=== PATIENT | male | born 1955 | race Caucasian/White ===

== ENCOUNTER 2020-05-10 14:35 | Inpatient (IN) | payer BC, MEDICARE ==
[2020-05-10] VITALS (13 sets, daily range): BP systolic 76–148; BP diastolic 46–79
[~2020-05-10] VITALS: Ht 180.3 cm; Wt 97.5 kg
[2020-05-10 15:09] LABS: HEMOGLOBIN 14.6 gm/dL (14.0-18.0)
[2020-05-10 15:10] LABS: HEMATOCRIT 44.4 % (42.0-52.0); MCH 32.5 pg (26.0-34.0); MCV 98.7 fL (80.0-100.0); MPV 8.3 fl. (7.2-11.1); NUCLEATED RBCS 1 /100WBC; PLATELET COUNT* 190 thou/uL (150-400); RDW-CV 13.1 % (10.5-14.5); WBC 10.7 thou/uL (4.0-11.0)
[2020-05-10 15:23] LABS: APTT 35.6 Seconds (25.0-31.3); INR 1.2; PROTIME 12.2 Seconds (9.20-11.50)
[2020-05-10 15:28] LABS: CALCIUM 8.3 mg/dL (8.5-10.1); CREATININE 1.1 mg/dL (0.6-1.3); POTASSIUM 3.8 mmol/L (3.5-5.1)
[2020-05-10 15:42] LABS: CK-MB MASS 2.8 ng/mL (<0.5-3.6); MAGNESIUM 2.5 mg/dL (1.8-2.4); TOTAL BILIRUBIN 0.4 mg/dL (<0.1-1.0); TOTAL PROTEIN 6.1 g/dL (6.4-8.2)
[2020-05-10 15:46] LABS: ABSOLUTE EOSINOPHILS 0.3 thou/uL (0.0-0.7); ABSOLUTE NEUTROPHILS 1.4 thou/uL (1.6-8.1)
[2020-05-10 15:47] LABS: PLATELET ESTIMATE ADEQUATE
[2020-05-10 15:54] LABS: BE -15.7 mmol/L (-2 to +3); PCO2 37.8 mmHg (35.0-45.0)
[2020-05-10 15:59] LABS: PO2 456.4 mmHg (75.0-100.0); pH 7.139 (7.340-7.450)
--- NOTE | 2020-05-10 16:35 | EKG ---
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[place] : 1955 Requested By: Dewayne Villafana Order Number: [id number] MD: Narciso Smith Measurements Intervals [place] Rate: 104 P: [place]: QRS: 146 QRSD: 178 T: 22 QT: 435 QTc: 573 Interpretive Statements Atrial fibrillation Right bundle branch block Anterolateral infarct, acute (LAD) Compared to ECG 05/10/2020 14:45:11 Ventricular premature complex(es) no longer present Myocardial infarct finding still present Electronically Signed On 05-10-2020 16:35:31 STEEL SPAR OPERATOR by Narciso Smith [email or web address] <ELECTRONICALLY SIGNED> By: Narciso Smith MD, FAC 05/10/20 1635 1446 1446 Narciso Smith MD, [facility] /EPI
--- NOTE | 2020-05-10 16:35 | EKG ---
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: [place] : 1955 Requested By: Dewayne Villafana Order Number: [id number] MD: Narciso Smith Measurements Intervals [place] Rate: 107 P: [place]: QRS: 157 QRSD: 178 T: 24 QT: 436 QTc: 582 Interpretive Statements Atrial fibrillation Ventricular bigeminy Right bundle branch block Anterolateral infarct, acute (LAD) Baseline wander in lead(s) II,III,aVF,V5 No previous ECG available for comparison Electronically Signed On 05-10-2020 16:35:29 NURSERY TECHNICIAN by Narciso Smith [email or web address] <ELECTRONICALLY SIGNED> By: Narciso Smith MD, FAC 05/10/20 1635 1445 1445 Narciso Smith MD, [facility] /EPI
[2020-05-10 18:19] LABS: BE -10.7 mmol/L (-2 to +3); PCO2 47.8 mmHg (35.0-45.0); PO2 68.9 mmHg (75.0-100.0)
[2020-05-10 18:27] LABS: CALCIUM 7.7 mg/dL (8.5-10.1); CREATININE 1.4 mg/dL (0.6-1.3); PHOSPHORUS* 7.8 mg/dL (2.5-4.9); POTASSIUM 3.2 mmol/L (3.5-5.1)
[2020-05-10 18:31] LABS: pH 7.183 (7.340-7.450)
[2020-05-10 21:05] LABS: BE -8.1 mmol/L (-2 to +3)
[2020-05-10 21:07] LABS: PCO2 51.5 mmHg (35.0-45.0)
[2020-05-10 23:03] LABS: HEMATOCRIT 43.8 % (42.0-52.0); HEMOGLOBIN 14.5 gm/dL (14.0-18.0); MCH 31.6 pg (26.0-34.0); MCHC 33.2 g/dL (28.0-37.0); MCV 95.2 fL (80.0-100.0); MPV 7.8 fl. (7.2-11.1); NUCLEATED RBCS 0 /100WBC; RDW-CV 12.9 % (10.5-14.5)
[2020-05-10 23:05] LABS: PLATELET COUNT* 290 thou/uL (150-400); WBC 27.9 thou/uL (4.0-11.0)
[2020-05-10 23:07] LABS: CALCIUM 7.7 mg/dL (8.5-10.1); CREATININE 1.6 mg/dL (0.6-1.3)
[2020-05-10 23:09] LABS: POTASSIUM 2.9 mmol/L (3.5-5.1)
[2020-05-10 23:11] LABS: INR 1.8; PROTIME 18.6 Seconds (9.20-11.50)
[2020-05-10 23:22] LABS: CALCIUM 8.1 mg/dL (8.5-10.1); CK-MB MASS 166.1 ng/mL (<0.5-3.6); MAGNESIUM 1.8 mg/dL (1.8-2.4); PHOSPHORUS* 5.2 mg/dL (2.5-4.9)
[2020-05-10 23:23] LABS: APTT 54.4 Seconds (25.0-31.3)
[2020-05-11] VITALS (95 sets, daily range): BP systolic 61–155; BP diastolic 36–75
[2020-05-11 00:23] LABS: ABSOLUTE LYMPHOCYTES 0.6 thou/uL (0.8-5.3); ABSOLUTE MONOCYTES 1.7 thou/uL (0.0-1.2); ABSOLUTE NEUTROPHILS 25.7 thou/uL (1.6-8.1); PLATELET ESTIMATE ADEQUATE
[2020-05-11 05:22] LABS: HEMOGLOBIN 14.6 gm/dL (14.0-18.0); MCH 31.5 pg (26.0-34.0); MCHC 33.2 g/dL (28.0-37.0); MCV 94.9 fL (80.0-100.0); MPV 7.6 fl. (7.2-11.1); RBC 4.64 mil/uL (4.50-6.00); RDW-CV 13.1 % (10.5-14.5)
[2020-05-11 05:46] LABS: CHOLESTEROL 178 mg/dL (<200); HDL CHOLESTEROL 32 mg/dL (>40); LDL CHOLESTEROL 113 mg/dL (<100); TC:HDL 5.6 Ratio (Not establshd); TRIGLYCERIDE 169 mg/dL (<150); VLDL 34 mg/dL (<40)
[2020-05-11 05:47] LABS: CALCIUM 6.5 mg/dL (8.5-10.1); CK-MB MASS 177.6 ng/mL (<0.5-3.6); CREATININE 1.5 mg/dL (0.6-1.3); MAGNESIUM 1.5 mg/dL (1.8-2.4); PHOSPHORUS* 2.5 mg/dL (2.5-4.9)
[2020-05-11 05:51] LABS: SERUM ASSESSMENT Clear
[2020-05-11 05:53] LABS: POTASSIUM 2.6 mmol/L (3.5-5.1)
[2020-05-11 05:54] LABS: INR 1.3; PROTIME 13.2 Seconds (9.20-11.50)
[2020-05-11 05:55] LABS: TROPONIN-I LEVEL 25.94 ng/mL (<0.06)
[2020-05-11 05:56] LABS: APTT 36.5 Seconds (25.0-31.3)
[2020-05-11 07:34] LABS: BE -10.3 mmol/L (-2 to +3); PCO2 38.2 mmHg (35.0-45.0)
[2020-05-11 07:37] LABS: PO2 159.5 mmHg (75.0-100.0); pH 7.247 (7.340-7.450)
--- NOTE | 2020-05-11 08:39 | CON ---
[address] [address] CONSULTATION Name: ELIAN OROURKE Room: [address] ADM IN M.R.#: [id number] Admission: 05/10/20 Attend Phys: Rigoberto Choi MD Discharge: Date of : 55 Report #: [id number] THIS REPORT FOR: cc: Physician not on staff Physician not on staff ~ Narciso Smith MD [facility] DATE OF SERVICE: 05/10/2020 CARDIOLOGY CONSULT INDICATION: Out of hospital cardiac arrest with ST elevation myocardial infarction. HISTORY OF PRESENT ILLNESS: The patient is a 65-year-old gentleman, not previously known to myself. He was brought to the Emergency Room by [facility] after they were summoned. He apparently was helping his son unload wood on a truck and suddenly collapsed. The patient had resuscitative efforts undertaken within 6 minutes of collapsing. He was brought to the hospital where ACLS protocol was followed and spontaneous perfusion returned. The patient received several rounds of epinephrine in the Emergency Room and was emergently to the cardiac catheterization lab. PAST MEDICAL HISTORY: Not yet documented and not known. ALLERGIES: None known. CURRENT MEDICATIONS: Not known. SOCIAL HISTORY: Not known. FAMILY HISTORY: Not known. PHYSICAL EXAMINATION: VITAL SIGNS: At the time of exam in the emergency room, heart rate was in the 110s with a blood pressure of approximately 90/60 after receiving epinephrine. The patient was unresponsive. HEENT: Head is normocephalic, atraumatic, somewhat cyanotic. NECK: Thick without obvious jugular venous distention. CHEST: Breath sounds equal bilaterally with ventilator support. CARDIOVASCULAR: Irregular, tachycardic rhythm with distant S1 and S2 without obvious gallop, rub or murmur. ABDOMEN: Distended without firmness. EXTREMITIES: Without edema. Peripheral pulses ____ [place] [address] CONSULTATION Name: ELIAN OROURKE Room: [address]#: [id number] Admission: 05/10/20 Attend Phys: Rigoberto Choi MD Discharge: Date of : 55 Report #: [id number] LABORATORY DATA: EKG showed diffuse ST elevation involving the inferior and anterolateral leads. The patient will be taken emergently to the cardiac catheterization lab for urgent angiography and possible intervention. <ELECTRONICALLY SIGNED> By: Narciso Smith MD, FACC 05/11/20 0839 1527 1553Micsabina Smith MD, FAC /nt
--- NOTE | 2020-05-11 09:59 | EKG ---
[place] [address] ELECTROCARDIOGRAM REPORT Name: SHARADELIAN Room: [address] ADM IN M.R.#: [id number] Admission: 05/10/20 Attend Phys: Rigoberto Choi, Discharge: Date of : 55 Date of Service: 05/11/20 0839 Report #: [id number] THIS REPORT FOR: //name// [facility] Test Date: 2020-05-11 Test Time: 08:39:39 Pat Name: ELIAN OROURKE Department: Room: [address] Gender: M Personal Injury Attorney: LUIS FELIPE : 1955 Requested By: Julius Beaulieu Order Number: [id number] Samuel MD: Julius Beaulieu Measurements Intervals [place] Rate: 84 P: 44 TN: 173 QRS: -46 QRSD: 103 T: 69 QT: 451 QTc: 534 Interpretive Statements Sinus rhythm Left anterior fascicular block nonspecific st segment changes Prolonged QT interval Compared to ECG 05/10/2020 14:46:00 ST segment elevation resolved Prolonged QT interval now present Atrial fibrillation no longer present Right bundle-branch block no longer present Electronically Signed On 05-11-2020 9:59:22 TIME CLERK by Julius Beaulieu [email or web address] <ELECTRONICALLY SIGNED> By: Julius Beaulieu MD, [facility] 05/11/2059 8 8 Julius Beaulieu MD, [facility] /EPI
[2020-05-11 12:10] LABS: CALCIUM 7.4 mg/dL (8.5-10.1); CREATININE 1.8 mg/dL (0.6-1.3); MAGNESIUM 2.5 mg/dL (1.8-2.4)
[2020-05-11 12:11] LABS: POTASSIUM 3.7 mmol/L (3.5-5.1)
--- NOTE | 2020-05-11 16:19 | 2DMMODE ---
[place] [address] 2 D/M-MODE ECHOCARDIOGRAM Name: ELIAN OROURKE Room: [address] ADM IN .R.#: [id number] Admission: 05/10/20 Attend Phys: Rigoberto Choi, Discharge: Date of : 55 Date of Service: 05/11/20 1619 Report #: [id number] THIS REPORT FOR: cc: Physician not on staff Physician not on staff Julius Beaulieu MD [facility] ~ APPROVED REPORT Study performed: 05/11/2020 13:54:32 EXAM: Limited 2D Patient Location: In-Patient Room #: [facility][note 3] BSA: 2.24 HR: 86 bpm BP: 116/63 mmHg Rhythm: NSR Other Information Study Quality: Technically Limited Technically limited study due to patient on ventilator, inability to position patient, poor endocardial definition. Indications Acute MO CAD Echo Enhancing Agent Indication: Endocardial border delineation Agent(s) / Amount(s) Used: Optison 3 cc Left Ventricle The left ventricle is normal size. severe hypokinesis of the distal septum and apex Left ventricular systolic function is mildly decreased. Right Ventricle The right ventricle is normal size. Atria The left atrium size is normal. The right atrium size is normal. Aortic Valve [address] [address] 2 D/M-MODE ECHOCARDIOGRAM Name: SHARADELIAN Room: [address] IN M.R.#: [id number] Admission: 05/10/20 Attend Phys: Rigoberto Choi, Discharge: Date of : 55 Date of Service: 05/11/209 Report #: [id number] The Aortic valve is sclerotic. Mitral Valve There is mitral annular calcification. The mitral valve is normal in structure. Tricuspid Valve The tricuspid valve is normal in structure. Pulmonic Valve Pulmonic valve is not well visualized. Great Vessels IVC is not well visualized. Pericardium There is no pericardial effusion. <Conclusion> severe hypokinesis of the distal septum and apex Left ventricular systolic function is mildly decreased. The Aortic valve is sclerotic. <ELECTRONICALLY SIGNED> By: Julius Beaulieu MD, FACC 05/11/201618 18 18 Julius Beaulieu MD, FACC /INF
[2020-05-11 17:15] LABS: BE -10.4 mmol/L (-2 to +3); PCO2 39.4 mmHg (35.0-45.0); PO2 97.1 mmHg (75.0-100.0); pH 7.237 (7.340-7.450)
[2020-05-11 17:30] LABS: HEMATOCRIT 37.1 % (42.0-52.0); MCH 31.8 pg (26.0-34.0); MCHC 33.7 g/dL (28.0-37.0); MCV 94.6 fL (80.0-100.0); MPV 7.6 fl. (7.2-11.1); RBC 3.92 mil/uL (4.50-6.00); RDW-CV 13.2 % (10.5-14.5); WBC 21.1 thou/uL (4.0-11.0)
[2020-05-11 17:31] LABS: HEMOGLOBIN 12.5 gm/dL (14.0-18.0)
[2020-05-11 17:45] LABS: APTT 30.6 Seconds (25.0-31.3)
[2020-05-11 17:46] LABS: CALCIUM 7.5 mg/dL (8.5-10.1); CREATININE 1.6 mg/dL (0.6-1.3); MAGNESIUM 2.2 mg/dL (1.8-2.4); PHOSPHORUS* 3.3 mg/dL (2.5-4.9); POTASSIUM 3.1 mmol/L (3.5-5.1)
[2020-05-12] VITALS (40 sets, daily range): BP systolic 86–126; BP diastolic 46–65
[2020-05-12 03:11] LABS: ABSOLUTE BASOPHILS 0.1 thou/uL (0.0-0.2); ABSOLUTE LYMPHOCYTES 0.7 thou/uL (0.8-5.3); ABSOLUTE MONOCYTES 1.3 thou/uL (0.0-1.2); ABSOLUTE NEUTROPHILS 18.7 thou/uL (1.6-8.1); BASOPHILS 0.3 %; HEMATOCRIT 33.4 % (42.0-52.0); HEMOGLOBIN 11.5 gm/dL (14.0-18.0); LYMPHOCYTES 3.3 %; MCH 32.1 pg (26.0-34.0); MCHC 34.6 g/dL (28.0-37.0); MCV 92.9 fL (80.0-100.0); MONOCYTES 6.3 %; MPV 7.4 fl. (7.2-11.1); NUCLEATED RBCS 0 /100WBC; PLATELET COUNT* 210 thou/uL (150-400); POLYS 90.1 %; RBC 3.59 mil/uL (4.50-6.00); RDW-CV 13.3 % (10.5-14.5); WBC 20.8 thou/uL (4.0-11.0)
[2020-05-12 03:18] LABS: CALCIUM 6.8 mg/dL (8.5-10.1); CREATININE 1.4 mg/dL (0.6-1.3); POTASSIUM 3.1 mmol/L (3.5-5.1)
[2020-05-12 03:22] LABS: ALBUMIN 2.7 g/dL (3.4-5.0); MAGNESIUM 1.8 mg/dL (1.8-2.4); TOTAL BILIRUBIN 0.6 mg/dL (<0.1-1.0); TOTAL PROTEIN 5.3 g/dL (6.4-8.2)
[2020-05-12 09:16] LABS: BE -2.2 mmol/L (-2 to +3); PCO2 37.1 mmHg (35.0-45.0); PO2 101.6 mmHg (75.0-100.0); pH 7.396 (7.340-7.450)
--- NOTE | 2020-05-12 14:29 | CARD ---
[address] [address] CARDIAC CATH REPORT Name: ELIAN OROURKE Room: [address] ADM IN M.R.#: [id number] Admission: 05/10/20 Attend Phys: Rigoberto Choi MD Discharge: Date of : 55 Report #: [id number] THIS REPORT FOR: cc: Physician not on staff Physician not on staff ~ Julius Beaulieu MD [facility] APPROVED REPORT Study performed: 05/10/2020 14:55:50 Patient Details Patient Status: ED Room #: The patient is a 65 year-old male Event Personnel Narciso Smith Traffic Maintenance Officer, Julius Beaulieu Cleaner Industrial, Natasha Page RN RN, Susan Peterson Monitor, Kaz Palafox RTR Scrub Procedures Performed Art Access - R femoral artery* , Left Heart Catheterization, PTCA with Stenting of RCA and LAD Indication Abnormal ECG, Syncope Risk Factors Diabetes Admission/Lab Medications/Medications given during procedure Glycoprotein IllbIlla Inhibitors, Thrombin Inhibitors, Atropine IV 1 mg, Angiomax IV 16 ml, Angiomax Drip IV 36.7 ml per hr, Aggrastat Unknown 10.9 ml, Dopamine IV 5 mcg per kg per min, Bicarb IV 50 ml, Lidocaine Hydrochloride IV 75 mg Procedure Narrative The patient was brought emergently to the Cardiac Catheterization Laboratory and was prepped and draped in a sterile manner. The right femoral was infiltrated with 2% Lidocaine subcutaneous anesthesia. A [place] 6 FR sheath was inserted into the right femoral artery. Coronary angiography was performed using coronary diagnostic catheters. The right coronary system was accessed and visualized with a Diagnostic catheter. The left coronary [place] [address] CARDIAC CATH REPORT Name: SHARADELIAN Room: [address] IN [facility]#: [id number] Admission: 05/10/20 Attend Phys: Rigoberto Choi MD Discharge: Date of : 55 Report #: [id number] visualized with a Diagnostic catheter. The left ventricle was accessed and visualized with a Diagnostic catheter. Left ventricular/Aortic Valve gradient assessed via catheter pullback. The patient tolerated the procedure well and there were no complications associated with the procedure. There was no hematoma. Sheath sutured into Right Femoral artery. Triple lumen venous catheter was placed in the right femoral vein at the end of the procedure. The patient suffered an acute cardiac arrest while at work. Paramedics resuscitated the patient who was intubated in the emergency room. Intraoperative Conscious Sedation Sedation start time: 15:49 Case end Time: 16:24 Versed 2 mg Fluoro Time: 10.9 minutes Dose: DAP 901016 cGycm2 2394.49 mGy Contrast Type and Amount: Visipaque 250 ml Diagnostic Cath Left Main The left main coronary artery is normal and bifurcates into a left anterior descending and circumflex coronary artery. LAD The proximal LAD is moderately, 50%, plaque at the origin. The mid vessel is acutely occluded. Diagonal 1 A small first diagonal branch has an 80% ostial stenosis. Circumflex The circumflex coronary artery has 10% narrowing in the proximal and midportion. Distally there is a 90% stenosis prior to the takeoff of a third obtuse marginal branch. OM1 The first obtuse marginal branches diffusely moderately plaqued and small in caliber. OM2 The second obtuse marginal branch is a large branch vessel with a 50% narrowing in the midportion. OM3 The third obtuse marginal branches small in caliber and diffusely plaqued. Right Coronary The right coronary artery has a moderate 30% plaquing proximally. In the midportion after the takeoff of an acute marginal there is a 70% narrowing. R PDA The PDA has a 50% narrowing proximally. RPLV The posterior lateral branch has minimal nonocclusive plaquing. Hemodynamics The aortic pressure is 130/70 mmHg with a mean of 98 [place] [address] CARDIAC CATH REPORT Name: ELIAN OROURKE Room: [address] IN M.R.#: [id number] Admission: 05/10/20 Attend Phys: Rigoberto Choi MD Discharge: Date of : 55 Report #: [id number] ventricular pressure is 133/13 mmHg with a mean of mmHg. The left ventricular end diastolic pressure is 23 mmHg. Pullback from the left ventricle to the aorta revealed no gradient across the aortic valve. PCI Technique Lesion Anticoagulation was achieved with Angiomax. bolus of iv aggrastat given Percutaneous coronary intervention was performed on the mid left anterior descending artery segment. The lesion stenosis prior to intervention was 100% with GAGE 0 flow. A JL 4.0 Guide Catheter was used to engage the lm ostium. A BMW 190cm Interventional Guidewire was used to cross the lesion. BALLOON DILATION A Balloon catheter Trek RX 2.5 X 8 was inserted and inflated up to 10.00atm for 5seconds. Repeat angiography revealed the following post-dilatation results: 80% stenosis. Additional Inflation: 10.00atm for 4seconds. STENT DEPLOYMENT A drug-eluting stent [place] RX Stent 2.0X18mm was inserted and inflated up to 6.00atm for 6seconds. Repeat angiography revealed the following post-stent deployment results: 0% stenosis. Additional Inflation: 7.00atm for 10seconds. Second drug eluting stent 2.5 x22mm was inserted proximal to the first stent, so that there was minimal overlap between this stent and the more distal lad stent, and inflated up to 11 elsy for 22 seconds. Additional inflation: 15 elsy for 16 seconds. Final angiography reveals 0 % stenosis with GAGE 3 flow. PCI Technique Lesion 2 Percutaneous Coronary Intervention was performed on the mid right coronary artery. Percutaneous coronary intervention was performed on the mid right coronary artery. The lesion stenosis prior to intervention was 70% with GAGE 3 flow. A 6FR JCR 4 100CM Guide Catheter was used to engage the rca ostium. A BMW 190cm Interventional Guidewire was used to cross the lesion. Balloon Dilation A Balloon catheter Trek RX 2.5 X 8 was inserted and inflated up to 14.00atm for 7seconds. Repeat angiography revealed the following post-dilatation results: 50% stenosis. Stent Deployment [address] [address] CARDIAC CATH REPORT Name: ELIAN OROURKE Room: [facility] IN [place].#: [id number] Admission: 05/10/20 Attend Phys: Rigoberto Choi MD Discharge: Date of : 55 Report #: [id number] A drug-eluting stent [place] RX Stent 2.53X54gh was inserted and inflated up to 9.00atm for 6seconds. Repeat angiography revealed the following post-stent deployment results: 0% stenosis. Additional Inflation: 17.00atm for 11seconds. Additional Inflation: 20.00atm for 14seconds. Final angiography reveals 0 % stenosis with GAGE 3 flow. Conclusion A. Three-vessel coronary artery disease as outlined above with acute occlusion of the mid left anterior descending coronary artery. 1. successful placement of 2 drug eluting stents in the acutely occluded mid LAD 2. successful placement of a drug eluting stent in the mid rca Recommendations code ice protocol. Aggressive risk factor modification. Diagnostic Cath Approved by: Narciso Smith MD Date/Time: <ELECTRONICALLY SIGNED> By: Julius Beaulieu MD, FACC 05/12/20 1428 1428 1428Julius Beaulieu MD, FACC /INF
[2020-05-12 15:20] LABS: HEMATOCRIT 32.6 % (42.0-52.0); HEMOGLOBIN 11.1 gm/dL (14.0-18.0)
[2020-05-12 17:33] LABS: CALCIUM 6.4 mg/dL (8.5-10.1); CREATININE 1.4 mg/dL (0.6-1.3)
[2020-05-12 17:35] LABS: POTASSIUM 6.6 mmol/L (3.5-5.1)
[2020-05-12 18:41] LABS: CALCIUM 6.9 mg/dL (8.5-10.1); CREATININE 1.5 mg/dL (0.6-1.3)
[2020-05-12 18:42] LABS: POTASSIUM 7.2 mmol/L (3.5-5.1)
[2020-05-13] VITALS (20 sets, daily range): BP systolic 92–182; BP diastolic 38–67
[2020-05-13 00:22] LABS: POTASSIUM 4.5 mmol/L (3.5-5.1)
[2020-05-13 04:46] LABS: CALCIUM 6.8 mg/dL (8.5-10.1); CREATININE 1.7 mg/dL (0.6-1.3); POTASSIUM 4.1 mmol/L (3.5-5.1)
[2020-05-13 11:16] LABS: BE -3.5 mmol/L (-2 to +3); PCO2 33.3 mmHg (35.0-45.0); PO2 91.7 mmHg (75.0-100.0); pH 7.407 (7.340-7.450)
--- NOTE | 2020-05-13 22:37 | CON ---
[address] [address] CONSULTATION Name: ELIAN OROURKE Room: [address] ADM IN M.R.#: [id number] Admission: 05/10/20 Attend Phys: Rigoberto Choi MD Discharge: Date of : 55 Report #: [id number] THIS REPORT FOR: cc: Physician not on staff Physician not on staff ~ Chato Cronin MD DATE OF SERVICE: 05/11/2020 REQUESTING PHYSICIAN: Dr. Choi INDICATION FOR CONSULTATION: Acute hypoxemic respiratory failure post-cardiac arrest. HISTORY OF PRESENT ILLNESS: This is a 65-year-old gentleman. Information regarding past medical history is limited at this time. The patient is reported to have had an pfy-ni-ngvstyrg cardiac arrest. He was brought to the Emergency Room with a Combitube in place. The patient did not have return of spontaneous circulation until in the Emergency Room. The patient's Combitube was switched over to an endotracheal tube in the Emergency Room as well. The patient was noted to have an anterior wall myocardial infarction and is status post cardiac catheterization at this time. The patient did have pulmonary edema on the chest x-ray yesterday. He was diuresed. This has since then improved. The patient is in fact at this time is ventilating and oxygenating adequately. The patient, however, has had worsening renal function as well as increasing lactic acidosis. The patient continues to need a low dose dopamine to maintain blood pressure, which is being managed by the Cardiology Service. A rise in creatinine to 1.8 from 1.1 yesterday is noted. He has been on code ICE. He has not had any response to verbal commands; however, the patient continues to overbreathe the ventilator and continues to have spontaneous movements. The patient is unable to provide a further history or review of systems. PAST MEDICAL HISTORY: Diabetes. The patient's recent echocardiogram shows apical hypokinesis, left ventricular ejection fraction, however, is reported to be only mildly decreased. SOCIAL HISTORY: There is no known history of smoking, ethanol abuse or drug abuse. FAMILY HISTORY: There is no pertinent family history. ALLERGIES: No known drug allergies. CURRENT MEDICATIONS: The list [place] [address] CONSULTATION Name: ELIAN OROURKE Room: [address] IN [facility]#: [id number] Admission: 05/10/20 Attend Phys: Rigoberto Choi MD Discharge: Date of : 55 Report #: [id number] PHYSICAL EXAMINATION: GENERAL: The patient is on Versed as well as fentanyl infusion. He is also on dopamine at around 5. VITAL SIGNS: Has a pulse of 90 and a blood pressure of 116/59. He is on 50% FiO2 with a 10 of PEEP. He is saturating in the high 90s. He is overbreathing the ventilator. He is on a tidal volume of 550 with a sed rate of 18. His temperature is 33.0, heart rate of 90. HEENT: Head is normocephalic and atraumatic. There is an endotracheal tube in place. NECK: Does not show raised JVP, asymmetry, mass or lymph nodes. CHEST: Symmetrical expansion on inspection and palpation. On auscultation, chest is essentially clear. HEART: Regular. There is no murmur. ABDOMEN: Soft and nontender. EXTREMITIES: Lower extremities show no edema, no calf tenderness. LABORATORY DATA: The patient's chest x-rays are as discussed above. [facility] and this is reviewed. I did order repeat labs this evening, which are pending. Arterial blood gases repeated several times indicating a persistent metabolic acidosis in [facility] reviewed. COVID-19 screen was negative. ASSESSMENT AND PLAN: 1. Cardiac arrest/anoxic brain injury. The Neurology service is on the case. Unfortunately, at first glance, it appears likely that the patient has significant anoxic brain injury. 2. Acute hypoxemic and hypercarbic respiratory failure. We will continue current ventilator settings. Arterial blood gases this evening are reviewed. We will also continue with current sedation. I did increase fentanyl earlier today. 3. Acute ST segment myocardial infarction. The Cardiology service is on the case. The patient is status post cardiac catheterization. 4. Acute systolic congestive heart failure/acute renal failure/metabolic acidosis. We will need to watch his fluid status closely. I did discuss with Dr. Smith for now. He is tolerating fluids while he is on the ventilator and we are able to oxygenate him. Considering worsening renal failure and persistent metabolic acidosis, I have ordered fluids for him. We will watch this closely. We will repeat labs this evening pending. When available, we will reassess. 5. Pulmonary infiltrates. I have suspicion that the patient may have aspirated; therefore, I did order Zosyn. Sputum culture was sent. We will review when available. 6. Diabetes. For now, I favor continuing with insulin infusion. This is being managed by the primary service. [address] [address] CONSULTATION Name: ELIAN OROURKE Room: [address] IN M.R.#: [id number] Admission: 05/10/20 Attend Phys: Rigoberto Choi MD Discharge: Date of : 55 Report #: [id number] 7. Deep vein thrombosis prophylaxis. Patient is on antiplatelet agents. We will review with Cardiology service regarding whether subcutaneous heparin for deep venous thrombosis prophylaxis should be considered. 8. Gastrointestinal prophylaxis. We will continue with Protonix. The patient is critically ill at this time. Total time spent providing critical care to this patient today is 41 minutes. <ELECTRONICALLY SIGNED> By: Chato Cronin MD 05/13/20 2237 1739 1918Asalud Cronin MD /nt
[2020-05-14] VITALS (22 sets, daily range): BP systolic 143–198; BP diastolic 57–81
[2020-05-14 05:29] LABS: ABSOLUTE MONOCYTES 0.9 thou/uL (0.0-1.2); ABSOLUTE NEUTROPHILS 13.1 thou/uL (1.6-8.1); BASOPHILS 0.1 %; HEMATOCRIT 26.7 % (42.0-52.0); HEMOGLOBIN 9.2 gm/dL (14.0-18.0); LYMPHOCYTES 6.5 %; MCH 32.6 pg (26.0-34.0); MCHC 34.2 g/dL (28.0-37.0); MCV 95.3 fL (80.0-100.0); MPV 7.9 fl. (7.2-11.1); NUCLEATED RBCS 0 /100WBC; PLATELET COUNT* 162 thou/uL (150-400); POLYS 87.4 %; RBC 2.81 mil/uL (4.50-6.00); RDW-CV 13.3 % (10.5-14.5)
[2020-05-14 06:08] LABS: ALBUMIN 2.8 g/dL (3.4-5.0); CALCIUM 8.2 mg/dL (8.5-10.1); CREATININE 1.5 mg/dL (0.6-1.3); MAGNESIUM 2.4 mg/dL (1.8-2.4); POTASSIUM 3.5 mmol/L (3.5-5.1); TOTAL BILIRUBIN 0.9 mg/dL (<0.1-1.0); TOTAL PROTEIN 5.4 g/dL (6.4-8.2)
[2020-05-14 08:17] LABS: PCO2 31.3 mmHg (35.0-45.0); PO2 115.4 mmHg (75.0-100.0); pH 7.451 (7.340-7.450)
[2020-05-15 06:00] LABS: HEMOGLOBIN 8.7 gm/dL (14.0-18.0); MCH 32.2 pg (26.0-34.0); MCHC 33.5 g/dL (28.0-37.0); MCV 96.2 fL (80.0-100.0); MPV 7.7 fl. (7.2-11.1); NUCLEATED RBCS 0 /100WBC; PLATELET COUNT* 155 thou/uL (150-400); RDW-CV 13.6 % (10.5-14.5); WBC 11.3 thou/uL (4.0-11.0)
[2020-05-15 06:18] LABS: ALBUMIN 2.6 g/dL (3.4-5.0); CALCIUM 8.2 mg/dL (8.5-10.1); CREATININE 1.3 mg/dL (0.6-1.3); MAGNESIUM 2.5 mg/dL (1.8-2.4); POTASSIUM 3.5 mmol/L (3.5-5.1); TOTAL BILIRUBIN 0.8 mg/dL (<0.1-1.0); TOTAL PROTEIN 5.3 g/dL (6.4-8.2)
[2020-05-15 08:42] LABS: ABSOLUTE LYMPHOCYTES 0.9 thou/uL (0.8-5.3); ABSOLUTE MONOCYTES 0.1 thou/uL (0.0-1.2); ABSOLUTE NEUTROPHILS 10.3 thou/uL (1.6-8.1)
[2020-05-15 08:43] LABS: HYPOCHROMASIA 1+; MICROCYTES 1+; PLATELET ESTIMATE ADEQUATE; TOXIC GRANULATION 1+
[2020-05-15 08:56] LABS: BE -2.1 mmol/L (-2 to +3); PCO2 29.9 mmHg (35.0-45.0); PO2 89.6 mmHg (75.0-100.0); pH 7.464 (7.340-7.450)
[2020-05-15 18:00] VITALS: BP 207/80
[2020-05-15 19:00] VITALS: BP 190/73
[2020-05-15 20:00] VITALS: BP 201/76
[2020-05-15 21:00] VITALS: BP 185/67
[2020-05-15 22:00] VITALS: BP 193/69
[2020-05-15 23:00] VITALS: BP 166/57
[2020-05-16] VITALS (24 sets, daily range): BP systolic 130–195; BP diastolic 47–66
[2020-05-16 10:46] LABS: BE -0.4 mmol/L (-2 to +3); PCO2 35.3 mmHg (35.0-45.0); PO2 80.2 mmHg (75.0-100.0)
[2020-05-16 11:56] LABS: ABSOLUTE LYMPHOCYTES 1.2 thou/uL (0.8-5.3); ABSOLUTE MONOCYTES 1.1 thou/uL (0.0-1.2); ABSOLUTE NEUTROPHILS 9.7 thou/uL (1.6-8.1); BASOPHILS 0.1 %; HEMATOCRIT 29.2 % (42.0-52.0); HEMOGLOBIN 9.7 gm/dL (14.0-18.0); LYMPHOCYTES 9.9 %; MCHC 33.2 g/dL (28.0-37.0); MCV 96.4 fL (80.0-100.0); MPV 7.7 fl. (7.2-11.1); NUCLEATED RBCS 0 /100WBC; PLATELET COUNT* 190 thou/uL (150-400); RBC 3.03 mil/uL (4.50-6.00); RDW-CV 13.3 % (10.5-14.5); WBC 11.9 thou/uL (4.0-11.0)
[2020-05-16 12:13] LABS: ALBUMIN 2.8 g/dL (3.4-5.0); CALCIUM 8.1 mg/dL (8.5-10.1); CREATININE 1.2 mg/dL (0.6-1.3); MAGNESIUM 2.3 mg/dL (1.8-2.4); POTASSIUM 3.3 mmol/L (3.5-5.1); TOTAL BILIRUBIN 0.8 mg/dL (<0.1-1.0); TOTAL PROTEIN 5.7 g/dL (6.4-8.2)
[2020-05-16 18:41] LABS: CALCIUM 8.3 mg/dL (8.5-10.1); CREATININE 1.2 mg/dL (0.6-1.3); MAGNESIUM 2.4 mg/dL (1.8-2.4); POTASSIUM 3.5 mmol/L (3.5-5.1)
[2020-05-17] VITALS (31 sets, daily range): BP systolic 126–190; BP diastolic 44–95
[2020-05-17 05:09] LABS: ABSOLUTE LYMPHOCYTES 1.1 thou/uL (0.8-5.3); ABSOLUTE NEUTROPHILS 7.7 thou/uL (1.6-8.1); EOSINOPHILS 0.2 %; HEMATOCRIT 27.1 % (42.0-52.0); LYMPHOCYTES 11.5 %; MCH 32.2 pg (26.0-34.0); MCHC 33.3 g/dL (28.0-37.0); MCV 96.7 fL (80.0-100.0); MONOCYTES 9.8 %; NUCLEATED RBCS 0 /100WBC; PLATELET COUNT* 183 thou/uL (150-400); POLYS 78.5 %; RDW-CV 13.4 % (10.5-14.5); WBC 9.9 thou/uL (4.0-11.0)
[2020-05-17 05:25] LABS: ALBUMIN 2.6 g/dL (3.4-5.0); CALCIUM 8.3 mg/dL (8.5-10.1); CREATININE 1.3 mg/dL (0.6-1.3); MAGNESIUM 2.4 mg/dL (1.8-2.4); POTASSIUM 3.4 mmol/L (3.5-5.1); TOTAL BILIRUBIN 0.6 mg/dL (<0.1-1.0); TOTAL PROTEIN 5.4 g/dL (6.4-8.2)
[2020-05-18] VITALS (28 sets, daily range): BP systolic 88–196; BP diastolic 38–70
[2020-05-18 12:07] LABS: ABSOLUTE LYMPHOCYTES 1.1 thou/uL (0.8-5.3); ABSOLUTE MONOCYTES 1.1 thou/uL (0.0-1.2); ABSOLUTE NEUTROPHILS 10.7 thou/uL (1.6-8.1); BASOPHILS 0.1 %; EOSINOPHILS 0.3 %; HEMATOCRIT 32.9 % (42.0-52.0); LYMPHOCYTES 8.7 %; MCH 32.2 pg (26.0-34.0); MCHC 33.4 g/dL (28.0-37.0); MCV 96.2 fL (80.0-100.0); MONOCYTES 8.8 %; NUCLEATED RBCS 0 /100WBC; PLATELET COUNT* 253 thou/uL (150-400); POLYS 82.1 %; RBC 3.42 mil/uL (4.50-6.00); RDW-CV 13.3 % (10.5-14.5)
[2020-05-18 12:41] LABS: ALBUMIN 2.7 g/dL (3.4-5.0); CALCIUM 8.2 mg/dL (8.5-10.1); CREATININE 1.4 mg/dL (0.6-1.3); MAGNESIUM 2.1 mg/dL (1.8-2.4); POTASSIUM 3.5 mmol/L (3.5-5.1); TOTAL BILIRUBIN 0.7 mg/dL (<0.1-1.0); TOTAL PROTEIN 5.7 g/dL (6.4-8.2)
--- NOTE | 2020-05-18 14:30 | EKG ---
[place] [address] ELECTROCARDIOGRAM REPORT Name: ELIAN OROURKE Room: [address] ADM IN M.R.#: [id number] Admission: 05/10/20 Attend Phys: Rigoberto Choi, Discharge: Date of : 55 Date of Service: 05/18/20 0302 Report #: [id number] THIS REPORT FOR: //name// [facility] Test Date: 2020-05-18 Test Time: 03:02:30 Pat Name: ELIAN OROURKE Department: Room: [address] Gender: M Pediatric Np: [place] : 1955 Requested By: Rigoberto Choi Order Number: [id number] Reading MD: Thomas Wilkes Measurements Intervals [place] Rate: 88 P: 16 RI: 131 QRS: -37 QRSD: 102 T: 112 QT: 344 QTc: 417 Interpretive Statements Sinus rhythm Left axis deviation Borderline repolarization abnormality Compared to ECG 05/11/2020 08:39:39 Left-axis deviation persists Prolonged QT interval no longer present Electronically Signed On 05-18-2020 14:30:20 JOURNALISM INTERN by Thomas Wilkes [email or web address] <ELECTRONICALLY SIGNED> By: Thomas Wilkes MD, [facility] 05/18/20 1430 1 1 Thomas Wilkes MD, [facility] /EPI
[2020-05-19] VITALS (15 sets, daily range): BP systolic 106–172; BP diastolic 39–62
[2020-05-19 08:10] LABS: HEMATOCRIT 29.7 % (42.0-52.0); HEMOGLOBIN 9.8 gm/dL (14.0-18.0); MCH 31.9 pg (26.0-34.0); MCHC 32.9 g/dL (28.0-37.0); MCV 96.9 fL (80.0-100.0); MPV 8.2 fl. (7.2-11.1); RBC 3.07 mil/uL (4.50-6.00); RDW-CV 13.3 % (10.5-14.5); WBC 14.5 thou/uL (4.0-11.0)
[2020-05-19 08:12] LABS: CALCIUM 8.1 mg/dL (8.5-10.1); CREATININE 1.3 mg/dL (0.6-1.3); POTASSIUM 3.9 mmol/L (3.5-5.1)
[2020-05-20] VITALS (11 sets, daily range): BP systolic 77–173; BP diastolic 57–75
[2020-05-20 04:17] LABS: HEMATOCRIT 29.4 % (42.0-52.0); HEMOGLOBIN 9.7 gm/dL (14.0-18.0); MCH 32.2 pg (26.0-34.0); MCHC 33.2 g/dL (28.0-37.0); MPV 8.3 fl. (7.2-11.1); NUCLEATED RBCS 0 /100WBC; PLATELET COUNT* 286 thou/uL (150-400); RBC 3.03 mil/uL (4.50-6.00); RDW-CV 13.4 % (10.5-14.5); WBC 14.5 thou/uL (4.0-11.0)
[2020-05-20 04:42] LABS: ALBUMIN 2.5 g/dL (3.4-5.0); CALCIUM 8.1 mg/dL (8.5-10.1); CREATININE 1.2 mg/dL (0.6-1.3); MAGNESIUM 2.4 mg/dL (1.8-2.4); POTASSIUM 4.3 mmol/L (3.5-5.1); TOTAL BILIRUBIN 0.5 mg/dL (<0.1-1.0); TOTAL PROTEIN 5.6 g/dL (6.4-8.2)
[2020-05-20 05:46] LABS: ABSOLUTE MONOCYTES 0.6 thou/uL (0.0-1.2); ABSOLUTE NEUTROPHILS 12.9 thou/uL (1.6-8.1); PLATELET ESTIMATE ADEQUATE; TOXIC GRANULATION 1+
[2020-05-21] VITALS (16 sets, daily range): BP systolic 125–143; BP diastolic 50–60
[2020-05-21] MEDS ORDERED: MSL20MG/ML SUBLING ×2 (08:39→08:45)
[2020-05-21] MEDS ORDERED: LORAZEPAM I2 MG/1 ML SUBLING ×2 (08:39→08:45)
[2020-05-21] MEDS ORDERED: ENOXAPARIN100 MG/11 SUBQ (12:07)
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
--- NOTE | 2020-05-22 21:14 | CON ---
[address] [address] CONSULTATION Name: ELIAN OROURKE Room: [address] IN M.R.#: [id number] Admission: 05/10/20 Attend Phys: Rigoberto Choi MD Discharge: 05/21/20 Date of : 55 Report #: [id number] THIS REPORT FOR: cc: Physician not on staff Physician not on staff ~ Jonathan Kirby MD DATE OF SERVICE: 05/12/2020 HISTORY OF PRESENT ILLNESS: This 65-year-old male patient who was followed up by me today. I had a long talk with the nurses. I discussed the patient with Pulmonary. I also discussed the patient with the hospitalist. The patient is not much changed. His jerking movements may be somewhat better. His neurological examination is completely nonpurposeful at the moment. After talking to the in detail, my plan is to do the CT scan of the head. I discussed with the in detail the potential complication, which can occur when we take him down for CT scan, it needs to be set up. The nurses are going to set it up. His EEG showed burst suppression pattern, which usually is a bad prognostic sign. If his MRI also shows that the patient has significant edema, then I think we need to talk to the family how aggressive they want to be. That decision will be taken after the CT scan is available. If CT scan is normal, we can try to stop the patient's sedation and then repeat the EEG and see what it shows. I spent more than 25 minutes of time taking care of this patient today and majority was spent counseling and coordinating. <ELECTRONICALLY SIGNED> By: Jonathan Kirby MD 05/22/204 [id number] Kirby MD /nt
--- NOTE | 2020-05-22 21:14 | EEG ---
[address] [address] EEG STUDY REPORT Name: ELIAN OROURKE Room: [address] IN M.R.#: [id number] Admission: 05/10/20 Attend Phys: Rigoberto Choi MD Discharge: 05/21/20 Date of : 55 Report #: [id number] THIS REPORT FOR: cc: Physician not on staff Physician not on staff ~ Jonathan Kirby MD DATE OF SERVICE: 05/12/2020 This patient is being evaluated for hypoxic encephalopathy. This patient's EEG demonstrates burst suppression pattern throughout this EEG. Photic stimulation is unremarkable. IMPRESSION: This patient's electroencephalogram demonstrates burst suppression pattern. That usually is a bad prognostic sign, but need to be combined with other signs to reach any definite conclusions. <ELECTRONICALLY SIGNED> By: Jonathan Kirby MD 05/22/20 2114 1202 [id number] Kirby MD /nt
== END 2020-05-21 13:45 | disposition hospice, home (50) | DRG 853 ==
LOC: M.CL 14:35 → M.ERS 14:35 → M.TBA-ER 17:03 → M.ICU 17:03
PROVIDERS: Family Medicine; Internal Medicine; Internal Medicine Cardiovascular Disease; Internal Medicine Critical Care Medicine; ADMIT Internal Medicine; ATTEND Internal Medicine
PROC: 03HY32Z Insertion of Monitoring Device into Upper Artery, Percutaneous Approach (ICD-10-PCS; principal; 2020-05-10)
PROC: 4A133B1 Monitoring of Arterial Pressure, Peripheral, Percutaneous Approach (ICD-10-PCS; principal; 2020-05-10)
PROC: 5A12012 Performance of Cardiac Output, Single, Manual (ICD-10-PCS; principal; 2020-05-10)
PROC: 0BH17EZ Insertion of Endotracheal Airway into Trachea, Via Natural or Artificial Opening (ICD-10-PCS; principal; 2020-05-10)
PROC: 4A133J1 Monitoring of Arterial Pulse, Peripheral, Percutaneous Approach (ICD-10-PCS; principal; 2020-05-10)
PROC: 5A1955Z Respiratory Ventilation, Greater than 96 Consecutive Hours (ICD-10-PCS; principal; 2020-05-10)
PROC: 027136Z Dilation of Coronary Artery, Two Arteries with Three Drug-eluting Intraluminal Devices, Percutaneous Approach (ICD-10-PCS; 2020-05-12)
PROC: 4A023N7 Measurement of Cardiac Sampling and Pressure, Left Heart, Percutaneous Approach (ICD-10-PCS; 2020-05-12)
PROC: B2111ZZ Fluoroscopy of Multiple Coronary Arteries using Low Osmolar Contrast (ICD-10-PCS; 2020-05-12)
PROC: 3E033PZ Introduction of Platelet Inhibitor into Peripheral Vein, Percutaneous Approach (ICD-10-PCS; 2020-05-12)
DX: A41.9 Sepsis, unspecified organism (principal); I21.09 ST elevation (STEMI) myocardial infarction involving other coronary artery of anterior wall; I46.9 Cardiac arrest, cause unspecified; J96.01 Acute respiratory failure with hypoxia; J96.02 Acute respiratory failure with hypercapnia; I49.01 Ventricular fibrillation; R57.0 Cardiogenic shock; I50.21 Acute systolic (congestive) heart failure; J69.0 Pneumonitis due to inhalation of food and vomit; G93.1 Anoxic brain damage, not elsewhere classified; E87.2 Acidosis; E87.6 Hypokalemia; E11.65 Type 2 diabetes mellitus with hyperglycemia; I95.9 Hypotension, unspecified; G25.3 Myoclonus; Z51.5 Encounter for palliative care; Z20.822 Contact with and (suspected) exposure to COVID-19